=== PATIENT | male | born 1995 | race African-American/Black ===

== ENCOUNTER 2020-02-10 12:13 | Emergency (ER) | payer SELFPAY ==
--- NOTE | ~2020-02-10 | XR_ITS ---
XR hand RT min 3V 02/10/2020 12:37 Indication: Right hand pain Procedure: 3 views right hand Comparison: No prior studies for comparison. Findings: There is a triangular ossific density dorsal to the carpal bones on the lateral view, most likely triquetral avulsion fracture. No other fractures identified. Mild soft tissue swelling adjacen t to the fifth metacarpal. Impression: 1: Possible triquetral avulsion fracture. Alternatively, this could originate from the base of the fi fth metacarpal. There is associated soft tissue swelling adjacent to the fifth metacarpal. Reviewed, dictated and finalized at location A. Impression: 1: Possible triquetral avulsion fracture. Alternatively, this could originate f rom the base of the fifth metacarpal. There is associated soft tissue swelling adjacent to the fifth metacarpal.
[2020-02-10 12:18] VITALS: BP 127/69; PULSE 82; RESP 19; TEMP 36.8; O2SAT 100
--- NOTE | 2020-02-10 13:14 | ED.GENADULT ---
HPI - General Adult General Chief complaint: Extremity Injury, Upper Stated complaint: right hand injury Time Seen by Provider: 02/10/20 12:23 Source: patient Mode of arrival: ambulatory Limitations: no limitations History of Present Illness HPI narrative: Patient is a 24-year-old male who presents to emergency department for evaluation of injuries to the right hand that occurred several days ago after punching an object multiple times patient presents with bruising swelling and tenderness over the dorsal surface of the right hand worse with activity and movement also sustained a cut to the dorsal surface of the right hand on the proximal phalanx fifth digit patient denies other injuries or complaints has not been seen for this presents per private vehicle in no distress Related Data Home Medications Medication Instructions Recorded Confirmed No Home Medications 02/10/20 02/10/20 Allergies Allergy/AdvReac Type Severity Reaction Status Date / Time No Known Allergies Allergy Verified 02/10/20 12:20 Review of Systems Review of Systems: All systems reviewed & are unremarkable except as noted in HPI and below PMFSH Social History Social History (Updated 02/10/20 @ 13:16 by Jd Blount PA-C) Smoking status: Current every day smoker Exam Narrative: Exam Narrative: GENERAL: Well-appearing, well-nourished, and in no acute distress. HEAD: Normocephalic, atraumatic. EYES: PERRLA and EOMI. ENT: Nares clear, no rhinorrhea or epistaxis. Mucous membranes moist. EXTREMITIES: Patient with bruising swelling and tenderness over the dorsal surface of the right hand patient with 1 cm linear superficial abrasion over the dorsal surface of the fifth finger proximal phalanx SKIN: Warm, dry, no rash. NEURO: No focal deficits. Alert and oriented x3. Neurovascularly intact. Capillary refill less than 2 seconds PSYCH: Normal mood and affect. Course Course Emergency Course: Patient in the emergency department had extremity placed in short arm splint will be referred to primary care and orthopedic surgery given reasons to return Vital Signs Vital signs: Vital Signs Temperature 98.3 F 02/10/20 12:18 Pulse Rate 82 02/10/20 12:18 Respiratory Rate 19 02/10/20 12:18 Blood Pressure 127/69 02/10/20 12:18 Pulse Oximetry 100 02/10/20 12:18 Temperature 98.3 F 02/10/20 12:18 Pulse Rate 82 02/10/20 12:18 Respiratory Rate 19 02/10/20 12:18 Blood Pressure 127/69 02/10/20 12:18 Pulse Oximetry 100 02/10/20 12:18 Procedures Orthopedic Splinting/Casting Injury #1: Splinting/Casting Date: 02/10/20 Splinting/Casting Time: 13:18 Side: right Upper Extremity Injury Location: wrist and hand Splint: customized in ED OCL: short arm Pre-Procedure Neuro Vascular Exam: normal Post-Procedure Neuro Vascular Exam: normal Medical Decision Making MDM Narrative Medical decision making narrative: Patients injury or pain is consistent with musculoskeletal etiology. No signs of neurological or vascular compromise on exam. Compartments and tisues are soft without signs of compartment syndrome. Pain is felt appropriate for further evaluation on an outpatient basis. Vital Signs Vital Signs: Vital Signs Temperature 98.3 F 02/10/20 12:18 Pulse Rate 82 02/10/20 12:18 Respiratory Rate 19 02/10/20 12:18 Blood Pressure 127/69 02/10/20 12:18 Pulse Oximetry 100 02/10/20 12:18 Temperature 98.3 F 02/10/20 12:18 Pulse Rate 82 02/10/20 12:18 Respiratory Rate 19 02/10/20 12:18 Blood Pressure 127/69 02/10/20 12:18 Pulse Oximetry 100 02/10/20 12:18 Discharge Plan Discharge Clinical Impression: Avulsion fracture of right wrist, Abrasion of finger Patient Disposition: Home, Self-Care Condition: Stable Instructions: Antibiotic Form, Splint Care (ED), How to Use a Sling (ED) Additional Instructions: Follow-up with orthopedic surge
== END 2020-02-10 13:54 | disposition home or self-care (01) ==
PROVIDERS: Emergency Provider Emergency Medicine
DX: S62.101A Fracture of unspecified carpal bone, right wrist, initial encounter for closed fracture (principal); F17.200 Nicotine dependence, unspecified, uncomplicated; W22.8XXA Striking against or struck by other objects, initial encounter
CPT/HCPCS: 29125; 73130; 99284; A4565